=== PATIENT | female | born 1955 | race Caucasian/White ===

== ENCOUNTER → 2016-12-31 | Day surgery (SDC) | payer OTHER ==
[~2016-12-31] MED LIST: ANUSOL SUPP1 SUPP PR; BACTRIM 400-801 TA1 PO; BENADRYL PO; BENADRYL25 M3 PO; BENICAR PO; BLOOD PRESSURE MED; BUPROPION XL300 MG PO; CALCIUM 1,0001 EACH PO; CERTAGEN PO; CLARINEX5 MG; DARVOCET-N 1001 TAB; DICLOFENAC PO; HYDROCODON-ACE1 EAC5 PO; IBUPROFEN PO; IBUPROFEN800 MG PO; KLONOPIN PO; L-LYSINE1000 M1 PO; LEXAPRO PO; LEXAPRO20 MG PO; LORCET 10/650 T1 TAB PO; LORTAB 10/500 T1 TAB PO; LORTAB 7.5-5001 TAB PO; MELOXICAM15 MG PO; NEXIUM PO; OXYCODON HCL-1 UDTAB PO; OXYCODONE-APAP1 EAC5 PO; PERCOCET 10/3251 TAB PO; PERCOCET5/325 PO; POTASSIUM99 M3 PO; PROTONIX PO; VALSARTAN-HCTZ1 EACH PO; VITAMIN B12-FO1 EACH PO; VITAMIN D1000 UNI1 PO; WELLBUTRIN PO; WELLBUTRIN XL PO; ZETIA PO
--- NOTE | ~2016-12-31 | OR ---
Unit #: [id number]: [id number] Patient: STEPHAN WILEY [id number] [address] [address] [id number] MR#: [id number] NAME: STEPHAN WILEY ROOM: Date of Procedure: 12/31/2016 Admission Date: 12/31/2016 Surgeon: Jared Garza M.D. : 1955 Attending Physician: Jared Garza M.D. Primary Care Physician: Crystal Hope M.D. OPERATIVE REPORT PREOPERATIVE DIAGNOSES Neck pain, cervical radiculopathy, degenerative cervical disk disease. POSTOPERATIVE DIAGNOSES Neck pain, cervical radiculopathy, degenerative cervical disk disease. PROCEDURE PERFORMED Cervical epidural steroid injection with intravenous sedation and fluoroscopic guidance for needle localization. INDICATIONS FOR PROCEDURE The patient is a 61-year-old female with worsening neck pain and stiffness and upper extremity radiculopathy. Due to cervical disk disease from C2-C7, she is not a surgical candidate. Initial epidural steroid injection 4 weeks ago resulted in 50% to 75% settling of her symptom complex and all her pain resolved. She has significant increase in cervical range of motion. Based on good response, we are going to proceed with a repeat epidural steroid injection today. DESCRIPTION OF PROCEDURE The patient was placed in a seated position. Standard monitors were applied. 2 mg of Versed were given for sedation and anxiolysis, which were adequate. Vital signs remained stable. Sterile prep and drape then of the cervical area was performed. The skin at the C5-C6 level was localized with 1% lidocaine. An 18-gauge Skypetead needle was then advanced via hanging drop technique and fluoroscopic guidance in toward the epidural space. After confirming proper positioning with fluoroscopy and radiographic contrast, a dose of 80 mg of Depo-Medrol and 2 mL of 0.25% bupivacaine were deposited. The patient tolerated the procedure otherwise well and was discharged to the recovery room in stable condition. Dictated by... Christian GrewalP/morenital TD: 12/31/2016 13:03 JOB #: [id number] Unit #: [id number] #: [id number] Patient: BARONE STRONG,STEPHAN OPERATIVE REPORT Page 1 of 1 X Jared Garza MD X PROCEDURE OPERATIVE NOTE
== END | disposition home or self-care (01) ==
LOC: CCSC 10:52
DX: M50.11 Cervical disc disorder with radiculopathy, high cervical region (principal); F32.9 Major depressive disorder, single episode, unspecified; F41.9 Anxiety disorder, unspecified; I10 Essential (primary) hypertension; Z79.899 Other long term (current) drug therapy
CPT/HCPCS: J1040; J2250